=== PATIENT | female | born 1955 | race African-American/Black ===

== ENCOUNTER 2020-02-28 12:07 | Emergency (ER) | payer BC, OTHER ==
[~2020-02-28] VITALS: Ht 162.6 cm; Wt 70.0 kg
[2020-02-28 12:20] VITALS: BP 135/95
[2020-02-28 12:59] LABS: BG BASE EXCESS -0.2 mmol/L (-2.0-2.0); BG CARBOXYHEMOGLOBIN 20.6 % (0.5-1.5); BG HCO3 ACT 19.9 mmol/L (22.0-26.0); BG OXYGEN SATURATION 98.7 % (92.0-98.5); BG OXYHEMOGLOBIN 78.4 % (94.0-97.0); BG PCO2 22.3 mmHg (35.0-45.0); BG PH 7.569 (7.350-7.450); BG PO2 397.7 mmHg (75.0-100.0); BG SAMPLE SITE LEFT BRACHIAL; BG TOTAL HEMOGLOBIN 13.7 g/dL (12.0-18.0); BG VENT MODE MASK - NRB
[2020-02-28 14:33] LABS: BG BASE EXCESS -0.5 mmol/L (-2.0-2.0); BG CARBOXYHEMOGLOBIN 5.5 % (0.5-1.5); BG DEOXYHEMOGLOBIN 0.5 % (0.0-5.0); BG HCO3 ACT 22.1 mmol/L (22.0-26.0); BG METHEMOGLOBIN 0.3 % (0.0-1.5); BG OXYGEN SATURATION 99.5 % (92.0-98.5); BG OXYHEMOGLOBIN 93.7 % (94.0-97.0); BG PCO2 30.7 mmHg (35.0-45.0); BG PH 7.475 (7.350-7.450); BG PO2 364.3 mmHg (75.0-100.0); BG SAMPLE SITE RIGHT BRACHIAL; BG TOTAL HEMOGLOBIN 13.7 g/dL (12.0-18.0); BG VENT MODE MASK - SIMPLE
[2020-02-28] MEDS ORDERED: ONDANSETRON 4MG ODT PO ONE (14:45)
== END 2020-02-28 17:12 | disposition home or self-care (01) ==
LOC: ER 12:09
DX: T58.91XA Toxic effect of carbon monoxide from unspecified source, accidental (unintentional), initial encounter (principal)
CPT/HCPCS: 36600; 82375; 82805; 99283; Q0162